=== PATIENT | female | born 1980 | race Caucasian/White ===

== ENCOUNTER 2020-11-26 10:03 | Emergency (ER) | payer MEDICAID, SELFPAY ==
--- NOTE | 2020-11-26 10:11 | ED.FEMALEGU ---
HPI - Female Genitourinary General Chief complaint: Urogenital-Female Stated complaint: UTI Time Seen by Provider: 11/26/20 10:12 Source: patient and RN notes reviewed Mode of arrival: ambulatory Limitations: no limitations History of Present Illness HPI Narrative: 40-year-old female presents to the [facility] with complaints of I think I have a UTI. Patient states she was helping a friend clean a pool and had a tampon in. Since getting out of the pool she has had periarea irritation. External burning with urination. Denies any abdominal pain. No suprapubic pressure. Denies fevers, nausea, vomiting. No back pain. Does not believe she has an STD but states she like to be tested. Related Data Allergies Allergy/AdvReac Type Severity Reaction Status Date / Time No Known Allergies Allergy Verified 11/01/20 12:23 Review of Systems Review of Systems: All systems reviewed & are unremarkable except as noted in HPI and below Constitutional: Constitutional: Reports no additional constitutional complaints, Denies chills and Denies fatigue Eyes: Eyes: Reports no additional eye complaints ENT: Reports system reviewed and no additional complaints, except as documented and Denies sore throat Cardiovascular: Cardiovascular: Reports no additional cardiovascular complaints and Denies chest pain Respiratory: Respiratory: Reports no additional respiratory complaints, Denies cough, Denies dyspnea and Denies wheezing Gastrointestinal: Gastrointestinal: Reports no additional gastrointestinal complaints, Denies abdominal pain, Denies nausea and Denies vomiting Genitourinary: Genitourinary: Reports as per HPI, Denies abnormal vaginal bleeding, Denies nocturia, Denies genital lesions, Reports dysuria and Denies flank pain Musculoskeletal: Musculoskeletal: Reports no additional musculoskeletal complaints, Denies back pain, Denies myalgias, Denies joint swelling and Denies muscle cramps Integumentary/Breasts: Skin/Breast: Reports system reviewed and no additional complaints, except as docu and Denies rash Neurologic: Reports system reviewed and no additional complaints, except as documented, Denies dizziness, Denies headache(s) and Denies focal weakness Psychiatric: Psychiatric: Reports no additional psychiatric complaints Allergic/Immunologic: Allergic/Immunologic: Reports no additional allergic/immunologic complaints PMFSH Comments At the time of my signature, I reviewed and agree with the nursing past medical, surgical, social, and family history. There is no relevant family history pertinent to the patient complaint. Exam Const: General: healthy appearing, no acute distress and alert Nutritional Appearance: well nourished Limitations: no limitations HENMT: Head: normal to inspection Eyes: Pupils: Equal, round and reactive pupils present Neck: Neck: normal visual inspection, no lymphadenopathy and no meningeal signs Chest: Chest palpation & inspection: normal inspection of the chest Resp: Effort & Inspection: normal respiratory effort and no use of accessory muscles Auscultation: clear to auscultation bilaterally, no crackles, no rales, no rhonchi and no wheezes Cardio: Rate: regular rate GI: GI Palp: Yes Soft to palpation and No Tenderness to palpation present (GI) : General: Yes bladder normal to palpation and Yes no CVA tenderness External Female Exam: normal appearance of the urethra, external swelling (Bilateral labial redness with inflammation), No lesion, No External ecchymosis (female) and No urethral discharge Speculum Exam - Vagina: abnormal vaginal discharge white Speculum Exam - Cervix: normal appearance of the cervix Bimanual exam- vagina & uterus: normal bimanual exam Other: Chaperoned by Nayla CHE Back/Spine/Pelvis: Back: no CVA tenderness Skin: General skin exam: normal color Rashes: no rashes Wounds: no wounds Neuro: General: patient oriented x3, moves all extremities and no meningeal signs Cranial ne
[2020-11-26 10:13] VITALS: BP 150/95; PULSE 96; RESP 16; TEMP 36.4; O2SAT 98
[2020-11-26 10:41] VITALS: BP 120/84
== END 2020-11-26 10:41 | disposition home or self-care (01) ==
PROVIDERS: Emergency Provider Nurse Practitioner
DX: N76.0 Acute vaginitis (principal)
CPT/HCPCS: 81003; 87070; 87077; 87491; 87591; 87661; 99214; G0463

== ENCOUNTER 2021-02-04 14:46 | Emergency (ER) | payer OTHER, SELFPAY ==
--- NOTE | ~2021-02-04 | XR_ITS ---
EXAMINATION: XR hand RT min 3V DATE: 02/04/2021 15:13 INDICATION: Right hand pain. Fall. TECHNIQUE: 4 views of right hand were obtained. COMPARISON: Right hand radiographs 12/27/2008 FINDINGS: Bone alignment is normal. There is a chronic 5 mm nonaggressive lytic lesion in lunate, whi ch may be an intraosseous ganglion or enchondroma. There is a possible nondisplaced oblique fracture of neck of second proximal phalanx. Joint spaces are normal. IMPRESSION: 1. Possible nondisplaced oblique fracture of neck of second proximal phalanx. Correlate for point ten derness. Reviewed, dictated and finalized at location A. IMPRESSION: 1. Possible nondisplaced oblique fracture of neck of second proximal phalanx. C orrelate for point tenderness.
[2021-02-04 15:00] VITALS: BP 123/80; PULSE 86; RESP 20; TEMP 36.8
--- NOTE | 2021-02-04 15:13 | ED.UPPEXIN ---
HPI - Extremity Injury (Upper) General Chief Complaint: Extremity Injury, Upper Stated Complaint: right hand pain Time Seen by Provider: 02/04/21 15:13 Source: patient and RN notes reviewed Mode of arrival: ambulatory Limitations: no limitations History of Present Illness HPI narrative: 41-year-old female presents to the [facility] with complaints of right hand pain bruising noted palmar and dorsal aspect as well bruising of the thumb and second finger. Decreased range of motion secondary to pain and swelling. No snuffbox tenderness. Full range of motion of the wrist. Patient states that she tripped and fell. No treatment prior to arrival. Incident night prior to arrival Denies any pain, shoulder pain. Denies falling and hitting head. No loss of consciousness Related Data Allergies Allergy/AdvReac Type Severity Reaction Status Date / Time No Known Allergies Allergy Verified 02/04/21 15:01 Review of Systems Review of Systems: All systems reviewed & are unremarkable except as noted in HPI and below Constitutional: Constitutional: Reports no additional constitutional complaints, Denies chills and Denies fever(s) Eyes: Eyes: Reports no additional eye complaints ENT: Reports system reviewed and no additional complaints, except as documented Cardiovascular: Cardiovascular: Reports no additional cardiovascular complaints Respiratory: Respiratory: Reports no additional respiratory complaints Musculoskeletal: Musculoskeletal: Reports as per HPI, Reports arthralgias and Reports joint swelling (Right hand thumb, second finger) Integumentary/Breasts: Skin/Breast: Reports as per HPI Comments: Bruising noted right hand Neurologic: Reports system reviewed and no additional complaints, except as documented Psychiatric: Psychiatric: Reports no additional psychiatric complaints Allergic/Immunologic: Allergic/Immunologic: Reports no additional allergic/immunologic complaints PMFSH Past Medical History Medical History (Updated 02/07/21 @ 13:28 by Saba Og) No significant medical problems Surgical History Surgical History (Updated 02/07/21 @ 13:26 by Saba Og) No significant past surgical history Comments At the time of my signature, I reviewed and agree with the nursing past medical, surgical, social, and family history. There is no relevant family history pertinent to the patient complaint. Exam Const: General: healthy appearing, no acute distress and alert Nutritional Appearance: well nourished Orientation/consciousness: patient oriented x3 Limitations: no limitations HENMT: Head: normal to inspection Eyes: Conjunctivae: conjunctivae normal Pupils: Equal, round and reactive pupils present Neck: Neck: normal visual inspection, no lymphadenopathy and no meningeal signs Chest: Chest palpation & inspection: normal inspection of the chest Resp: Effort & Inspection: normal respiratory effort Auscultation: clear to auscultation bilaterally Cardio: Rate: regular rate Rhythm: regular rhythm Back/Spine/Pelvis: Back: no CVA tenderness Skin: Other: Bruising noted dorsal, palmar, first and second fingers right hand Neuro: General: patient oriented x3, moves all extremities, no meningeal signs and no focal motor deficits Speech: normal speech Gait exam (Neuro): Normal gait present Extrem: Left upper extremity: hand normal capillary refill, neuromotor exam normal, neurosensory exam normal, vascular exam, swelling and ecchymosis of the dorsal hand, of the palm, of the thumb and of the 2nd digit Right lower extremity: normal to inspection Left lower extremity: normal to inspection Psych: Appearance: grossly normal and well kempt Mental Status: mental status grossly normal Affect: normal affect Attitude: cooperative Thought content: Yes Normal thought content present Course Course Emergency Course: Discharge instructions reviewed with patient, as well as provided in writing per nursing staff. The inst
== END 2021-02-04 15:53 | disposition home or self-care (01) ==
PROVIDERS: Emergency Provider Nurse Practitioner
DX: S62.600A Fracture of unspecified phalanx of right index finger, initial encounter for closed fracture (principal); W01.0XXA Fall on same level from slipping, tripping and stumbling without subsequent striking against object, initial encounter
CPT/HCPCS: 29130; 73130; 99214; G0463

== ENCOUNTER 2021-11-27 08:49 | Emergency (ER) | payer OTHER, SELFPAY ==
[2021-11-27 08:57] VITALS: BP 109/79; PULSE 98; RESP 16; TEMP 37.2; O2SAT 99
--- NOTE | 2021-11-27 08:57 | ED.URI ---
HPI - URI/Sore Throat General Chief Complaint: Upper Respiratory Infection Stated Complaint: uri Time Seen by Provider: 11/27/21 09:03 Source: patient and RN notes reviewed Mode of arrival: ambulatory Limitations: no limitations History of Present Illness HPI Narrative: 41-year-old female took a positive home COVID test this morning. She endorses sinus pressure and congestion, sore throat, body aches and nausea over the last 3 days. She states she does not know what to do for symptoms. She has been taking multiple [id number] medications with minimal relief. She denies shortness of breath, heart racing, vomiting, fevers or chills. She is boosted for COVID and vaccinated for flu. MD elicited complaint: cough Related Data Home Medications Medication Instructions Recorded Confirmed No Home Medications 11/27/21 11/27/21 Allergies Allergy/AdvReac Type Severity Reaction Status Date / Time No Known Allergies Allergy Verified 11/27/21 08:53 Review of Systems Review of Systems: CONSTITUTIONAL: Denies chills, sweats, fever EYES: Denies visual changes, redness, or discharge ENT: Reports rhinorrhea, congestion, sinus pain, otalgia, sore throat CARDIOVASCULAR: Denies chest pain, palpitations, edema RESPIRATORY: Reports cough, post nasal drainage. Denies dyspnea GASTROINTESTINAL: Denies abdominal pain, vomiting, diarrhea SKIN: Denies rash or itching MUSCULOSKELETAL: Endorses myalgia PMFSH Past Medical History Medical History No significant medical problems Surgical History Surgical History No significant past surgical history Exam Narrative: GENERAL: Ill-appearing, nontoxic HEAD: Normocephalic EYES: conjunctivae clear ENT: Mucous membranes moist. TM pearly killian with dull light reflex bilaterally; no tragal tenderness. Oropharynx erythematous without lesions or exudate, no drooling, no hoarseness, no trismus, uvula midline. NECK: Supple. Mild anterior cervical lymphadenopathy CHEST: Clear to auscultation, breath sounds equal. No wheezing, rhonchi, rales, or stridor. No respiratory distress, speaks in full sentences. HEART: Regular rate and rhythm. No murmur heard. SKIN: Warm, dry, no rash. NEURO: Alert and oriented x3. PSYCH: Normal mood and affect Course Course Emergency Course: Patient is aware of diagnosis, understands and agrees to treatment plan. Anticipatory guidance given. Patient agrees to follow-up as directed and is aware of reasons to seek care at the emergency department. Portions of this record may have been created with voice recognition software Level of Care: Express Care Visit Vital Signs Vital signs: reviewed MDM - URI/Sore Throat MDM Narrative Medical decision making narrative: Pt endorses testing positive for covid at home today. Advised on supportive treatments. She is in stable condition vss. Appropriate for outpt treatment and f/u. Differential Diagnosis Differential diagnosis: Likely upper respiratory infection, sinusitis and viral infection Discharge Plan Discharge Clinical Impression: Viral infection Patient Disposition: Home, Self-Care Condition: Stable Instructions: Antibiotic Form, COVID-19 (Coronavirus Disease 2019) (ED) Additional Instructions: Your home rapid COVID test was positive today. The following recommendations have been made by the CDC and local Health Departments, regarding COVID-19: -Those individuals with mild cases of COVID-19 can generally be discontinued from isolation 5 days AFTER the onset of symptoms AND the resolution of fever for 24hrs (without the use of fever-reducing medications)* -Wear a mask for 5 days following quarantine Rest, stay hydrated. Tylenol, Flonase/nasal spray, Zyrtec, Sudafed, cough syrup cold/flu medications for symptoms as needed Follow up with your primary care provider as needed in 1-2 weeks
== END 2021-11-27 09:15 | disposition home or self-care (01) ==
PROVIDERS: Emergency Provider Nurse Practitioner Family
DX: B34.9 Viral infection, unspecified (principal)
CPT/HCPCS: 99211; G0463

== ENCOUNTER 2021-12-11 12:25 | Emergency (ER) | payer OTHER, SELFPAY ==
--- NOTE | ~2021-12-11 | XR_ITS ---
XR foot RT min 3V DATE: 12/11/2021 12:50 INDICATION: Right foot injury. Metatarsal pain. TECHNIQUE: 4 views COMPARISON: 07/07/2018 right foot FINDINGS: Old healed fifth metatarsal shaft fracture deformity. No recent fracture or dislocation, periosteal reaction or bone destruction is detected. IMPRESSION: No recent fracture or dislocation Old healed right fifth metatarsal shaft fracture deformity Reviewed, dictated and finalized at location B.
[2021-12-11 12:32] VITALS: BP 111/75; PULSE 79; RESP 16; TEMP 37.1; O2SAT 100
--- NOTE | 2021-12-11 12:35 | ED.LOWEXIN ---
HPI - Extremity Injury (Lower) General Chief Complaint: Extremity Injury, Lower Stated Complaint: right foot pain Time Seen by Provider: 12/11/21 12:35 Source: patient Mode of arrival: ambulatory Limitations: no limitations History of Present Illness HPI Narrative: 41-year-old female presents with complaint of pain to right great toe extending up into dorsal aspect of foot. 2 nights ago was playing sand volleyball and states that she ran forward for the volleyball and her foot got twisted up in the sand. Has swelling and bruising to right great toe. Is concerned for fracture. Pain with flexion and extension. Ambulatory with slight limp. All systems reviewed and negative except as noted above. Related Data Home Medications Medication Instructions Recorded Confirmed No Home Medications 11/27/21 11/27/21 Allergies Allergy/AdvReac Type Severity Reaction Status Date / Time No Known Allergies Allergy Verified 12/11/21 12:40 Review of Systems Review of Systems: CONSTITUTIONAL: Denies fever, chills, or sweats. EYES: Denies visual changes, redness, or discharge. ENT: Denies rhinorrhea, congestion, sore throat, or otalgia. CARDIOVASCULAR: Denies chest pain, palpitations, or edema. RESPIRATORY: Denies cough or dyspnea. GASTROINTESTINAL: Denies abdominal pain, nausea, vomiting, or diarrhea. GENITOURINARY: Denies dysuria or hematuria. SKIN: Denies rash or itching. MUSCULOSKELETAL: Denies back pain, joint pain, or myalgia. Reports pain to right great toe, dorsal aspect right foot. NEUROLOGIC: Denies headache, numbness, or weakness. PSYCHIATRIC: Denies anxiety or depression. All other systems reviewed are negative, except as documented in HPI. PMFSH Past Medical History Medical History No significant medical problems Surgical History Surgical History No significant past surgical history Comments At time of signature, agree with nursing past medical, surgical, social and family history. There is no relevant family history pertinent to the presenting complaint. Exam Narrative: GENERAL: This is a well-nourished, well-developed patient, in no apparent distress. HEAD: normocephalic, atraumatic. EYES: PERRL. Sclera clear/white. Vision is grossly intact. EARS: External ears normal NOSE: External nose normal NECK: Neck supple, non-tender without lymphadenopathy, masses or thyromegaly. CARDIOVASCULAR: Regular rate and rhythm without murmurs, gallops, or rubs. RESPIRATORY: Clear to auscultation. Breath sounds equal bilaterally. No wheezes, rales, or rhonchi. SKIN: warm, Dry, intact with no suspicious lesions or rash, good texture and turgor. NEURO: awake, alert, and oriented to person, place and time. There were no obvious focal neurologic abnormalities. EXTREMITIES: No joint tenderness, effusion, or edema noted. Tenderness to proximal aspect right great toe, first metatarsal joint. Bruising noted. Mild swelling. Range of motion intact. Course Course Level of Care: Express Care Visit Vital Signs Vital signs: Vital Signs Temperature 37.1 C 12/11/21 12:32 Pulse Rate 79 12/11/21 12:32 Respiratory Rate 16 12/11/21 12:32 Blood Pressure 111/75 12/11/21 12:32 Pulse Oximetry 100 12/11/21 12:32 Oxygen Delivery Room Air 12/11/21 12:32 Temperature 37.1 C 12/11/21 12:32 Pulse Rate 79 12/11/21 12:32 Respiratory Rate 16 12/11/21 12:32 Blood Pressure 111/75 12/11/21 12:32 Pulse Oximetry 100 12/11/21 12:32 Oxygen Delivery Room Air 12/11/21 12:32 Reviewed MDM - Extremity Injury (Lower) MDM Narrative Medical decision making narrative: discussed x-ray results with pt. no fracture noted. placed in post op shoe for comfort. pt ambulatory at stating post op shoe helped pain. recommend follow up with PCP if pain not improving. Patient is aware of diagnosis, unde
== END 2021-12-11 13:15 | disposition home or self-care (01) ==
PROVIDERS: Emergency Provider Nurse Practitioner Family
DX: S93.501A Unspecified sprain of right great toe, initial encounter (principal); X50.9XXA Other and unspecified overexertion or strenuous movements or postures, initial encounter; Y93.68 Activity, volleyball (beach) (court)
CPT/HCPCS: 73630; 99213; G0463